=== PATIENT | male | born 1955 | race African-American/Black ===

== ENCOUNTER 2021-08-03 19:55 | Emergency (ER) | payer MEDICARE ==
[~2021-08-03] VITALS: Ht 167.6 cm; Wt 65.8 kg
--- NOTE | 2021-08-03 20:05 | NUR ---
PT [id number] FROM [facility] C/O AMS X 1 HOUR TACHY HEART RATE. A/OX3; LETHARGIC. PT TOLERATING R/A WELL AT 95%. CONNECTED PT TO POX AND MONITOR.
[2021-08-03] MEDS ORDERED: DEXTROSE 50%-WATER 50 ML DISP.SYRIN ONE (20:25)
--- NOTE | 2021-08-03 20:30 | NUR ---
BS 54; NOTIFIED LAW MD. VERBAL ORDER FOR DEXTROSE 50% AND ADMINISTERED LAC #18G S/L.
--- NOTE | 2021-08-03 20:33 | NUR ---
MAINFRAME SOFTWARE DEVELOPER AT PT'S BEDSIDE
--- NOTE | 2021-08-03 20:34 | NUR ---
PT TAKEN TO CT VIA LA
--- NOTE | 2021-08-03 20:42 | NUR ---
PT RETURNED TO ER BED 6 VIA LA
[2021-08-03 20:53] LABS: BASOPHILS % (AUTO) 0.2 % (0.0-2.0); EOSINOPHILS % (AUTO) 0.2 % (0.0-6.0); HEMATOCRIT 29 % (39-51); HEMOGLOBIN 9.8 g/dL (13.5-17.5); LYMPHOCYTES # (AUTO) 0.7 K/uL (0.8-4.8); LYMPHOCYTES % (AUTO) 14.3 % (20.0-44.0); MEAN CORPUSCULAR HGB CONC 34 g/dl (31.0-36.0); MEAN CORPUSCULAR VOLUME 97 fL (80-96); MONOCYTES # (AUTO) 1.2 K/uL (0.1-1.30); MONOCYTES % (AUTO) 24.6 % (2.0-12.0); NEUTROPHILS # (AUTO) 2.9 K/uL (1.8-8.9); NEUTROPHILS % (AUTO) 60.7 % (43.0-81.0); PLATELET COUNT (AUTO) 203 K/uL (150-450); RED BLOOD CELL COUNT(AUTO) 2.99 MIL/uL (4.5-6.0); WHITE BLOOD COUNT (AUTO) 4.8 K/uL (4.3-11.0)
--- NOTE | 2021-08-03 20:54 | NUR ---
COLLECTED COVID ANTIGEN SWAB AND SENT TO LAB
--- NOTE | 2021-08-03 20:56 | NUR ---
PT NOT ABLE TO PROVIDE URINE SAMPLE AT THIS TIME; WILL F/U TRY AGAIN LATER
[2021-08-03 21:02] LABS: CALCIUM, SERUM 9.7 mg/dL (8.5-10.1); CARBON DIOXIDE 28 mmol/L (21-32); CHLORIDE 102 mmol/L (98-107); CREATININE 1.4 mg/dL (0.6-1.3); GLUCOSE 57 mg/dL (74-106); POTASSIUM 3.5 mmol/L (3.5-5.1); SERUM AMMONIA 14 umol/L (11-32); SODIUM SERUM 139 mmol/L (136-145); UREA NITROGEN, BLOOD 29 mg/dL (7-18)
[2021-08-03 21:07] LABS: ALANINE AMINOTRANSFERASE 44 U/L (12-78); ALBUMIN 2.9 g/dL (3.4-5.0); ALKALINE PHOSPHATASE 86 U/L (46-116); ASPARTATE AMINOTRANSFERASE 63 U/L (15-37); BILIRUBIN,DIRECT 0.1 mg/dL (0.0-0.2); BILIRUBIN,TOTAL 0.1 mg/dL (0.2-1.0); TOTAL PROTEIN, SERUM 7.2 g/dL (6.4-8.2)
--- NOTE | 2021-08-03 21:08 | NUR ---
BS 163; PT DENIES N/V/D
[2021-08-03 21:09] LABS: ALCOHOL, BLOOD < 3 mg/dL (0-0)
[2021-08-03 21:14] LABS: THYROID STIMULATING HORMONE 1.973 uIU/mL (0.358-3.74)
[2021-08-03 21:34] LABS: BASOPHILS % (MANUAL) 1 % (0.0-2.0); LYMPHOCYTES % (MANUAL) 7 % (16-48); MONOCYTES % (MANUAL) 28 % (0-11.0); NEUTROPHILS % (MANUAL) 64 (42-76)
--- NOTE | 2021-08-03 21:41 | NUR ---
UPDATED DAUGHTER [phone] PT COMING FROM [facility] [address] - NURSE GARAY
--- NOTE | 2021-08-03 21:49 | NUR ---
GAVE REPORT TO ZULEIKA KUMARI FOR YASMEEN. ZULEIKA WILL CALL BACK TO CONFIRM PT BED AVAILABLE. CONTACT DROPLET ISOLATION PRECAUTIONS IN PLACE
--- NOTE | 2021-08-03 22:05 | NUR ---
VENU TO PT TO D/C [facility] BED 307 B
--- NOTE | 2021-08-03 22:07 | NUR ---
[facility] CALLED FOR TRANSPORT. ETA 2-2.5 HRS
--- NOTE | 2021-08-03 22:26 | NUR ---
UPDATED TANISHA NURSE FROM [facility] FOR [facility]BUL[facility] ETA. UPDATED FELISA WYLIE [phone] ON PT'S STATUS.
--- NOTE | 2021-08-03 23:56 | NUR ---
BS 196; PT DENIES N/V/D, OR DIZZINESS. PT IN NO RESP DISTRESS. TOLERATING R/A WELL AT 96%.
--- NOTE | 2021-08-04 00:12 | NUR ---
PT SIGNED DC PAPER WORK: EDUCATION GIVEN & VERBALIZES UNDERSTANDING ON DC
[2021-08-04] MEDS ORDERED: DEXTROSE 50%-WATER 50 ML DISP.SYRIN IVP ONE (00:30)
--- NOTE | 2021-08-04 02:42 | NUR ---
REPORT GIVEN TO EMS AT BEDSIDE
[2021-08-04 03:04] VITALS: BP 142/85
== END 2021-08-04 02:42 ==
LOC: ER 19:59
DX: E16.2 Hypoglycemia, unspecified (principal); U07.1 COVID-19; I10 Essential (primary) hypertension; M95.2 Other acquired deformity of head; S02.32XS Fracture of orbital floor, left side, sequela; X58.XXXS Exposure to other specified factors, sequela; R94.31 Abnormal electrocardiogram [ECG] [EKG]
CPT/HCPCS: 36415; 70450-TC; 71045-TC; 80048-TC; 80076-TC; 82140-TC; 82962-TC; 84443-TC; 84484-TC; 85025-TC; 85730-TC; 87081-TC; C9803; G0480

== ENCOUNTER 2022-02-04 21:50 | Inpatient (IN) | payer MEDICARE, OTHER ==
[~2022-02-04] VITALS: Ht 170.2 cm; Wt 54.0 kg
--- NOTE | 2022-02-04 21:54 | NUR ---
BIBRA90 FROM [facility] WITH NO MEDICAL COMPLAINTS PER DAUGHTER "HES NOT ACTING NORMAL" & "SLURRED SPEECH" PER STAFF "HES ACTING NORMAL" BS 109. PT A/OX2/3. TOLERATING R/A WITH RESPIRATIONS EVEN AND NONLABORED. CONNECTED PT TO POX AND MONITOR.
--- NOTE | 2022-02-04 22:18 | NUR ---
PLATFORM MATERIAL HANDLER MANAGER AT PT'S BEDSIDE
--- NOTE | 2022-02-04 22:50 | NUR ---
URINE COLLECTED AND SENT TO LAB
[2022-02-04 23:09] LABS: BASOPHILS % (AUTO) 0.4 % (0.0-2.0); EOSINOPHILS % (AUTO) 3.7 % (0.0-6.0); HEMATOCRIT 32 % (39-51); HEMOGLOBIN 10.5 g/dL (13.5-17.5); LYMPHOCYTES # (AUTO) 3.3 K/uL (0.8-4.8); LYMPHOCYTES % (AUTO) 37.7 % (20.0-44.0); MEAN CORPUSCULAR HGB CONC 33 g/dl (31.0-36.0); MEAN CORPUSCULAR VOLUME 90 fL (80-96); MONOCYTES # (AUTO) 0.6 K/uL (0.1-1.30); MONOCYTES % (AUTO) 7.3 % (2.0-12.0); NEUTROPHILS # (AUTO) 4.4 K/uL (1.8-8.9); NEUTROPHILS % (AUTO) 50.9 % (43.0-81.0); PLATELET COUNT (AUTO) 251 K/uL (150-450); RED BLOOD CELL COUNT(AUTO) 3.53 MIL/uL (4.5-6.0); WHITE BLOOD COUNT (AUTO) 8.7 K/uL (4.3-11.0)
[2022-02-04 23:13] LABS: CALCIUM, SERUM 8.8 mg/dL (8.5-10.1); CARBON DIOXIDE 28 mmol/L (21-32); CHLORIDE 104 mmol/L (98-107); CREATININE 0.9 mg/dL (0.6-1.3); GLUCOSE 99 mg/dL (74-106); POTASSIUM 4.5 mmol/L (3.5-5.1); SODIUM SERUM 138 mmol/L (136-145); UREA NITROGEN, BLOOD 21 mg/dL (7-18)
[2022-02-04 23:18] LABS: ALANINE AMINOTRANSFERASE 24 U/L (12-78); ALCOHOL, BLOOD < 3 mg/dL (0-0); ALKALINE PHOSPHATASE 111 U/L (46-116); ASPARTATE AMINOTRANSFERASE 14 U/L (15-37); BILIRUBIN,DIRECT 0.1 mg/dL (0.0-0.2); BILIRUBIN,TOTAL 0.1 mg/dL (0.2-1.0); TOTAL PROTEIN, SERUM 7.9 g/dL (6.4-8.2)
--- NOTE | 2022-02-04 23:20 | NUR ---
PT TAKEN TO CT VIA LA
--- NOTE | 2022-02-04 23:30 | NUR ---
PT RETURNED TO ER BED 4
[2022-02-04 23:31] LABS: SERUM AMMONIA 22 umol/L (11-32)
[2022-02-04 23:43] LABS: BILIRUBIN,URINE NEGATIVE (NEGATIVE); COLOR,URINE YELLOW (YELLOW); LEUKOCYTE ESTERASE ,URINE MODERATE (NEGATIVE); NITRITE, URINE POSITIVE (NEGATIVE); PH,URINE 5.5 (5.0-8.0); PROTEIN,URINE NEGATIVE (NEGATIVE); UGLUCOSE NEGATIVE (NEGATIVE); UROBILINOGEN,URINE 0.2 EU/dL (0.2)
[2022-02-04 23:50] LABS: BACTERIA,URINE Moderate /HPF (None Seen); RBC,URINE 0-2 /HPF (0-2); SQUAMOUS EPITHELIAL CELL,UR Few /HPF (None Seen)
[2022-02-05] MEDS ORDERED: CEFTRIAXONE 1GM BAG (ER ONLY) 50 ML IV ONE (00:46)
[2022-02-05] MEDS ORDERED: AZITHROMYCIN 500 MG VIAL ONE (00:47)
--- NOTE | 2022-02-05 00:57 | NUR ---
EPIC PAGED PER DR LING
[2022-02-05] MEDS ORDERED: AZITHROMYCIN 500 MG in IV D5W 250 ML IV ONE (01:00)
[2022-02-05] MEDS ORDERED: CEFTRIAXONE 1GM BAG (ER ONLY) 1 GM/50 ML PIGGYBACK IV ONE (01:00)
--- NOTE | 2022-02-05 01:37 | NUR ---
HACK SAW OPERATOR AT PT'S BEDSIDE
[2022-02-05] MEDS ORDERED: FAMO20TA8 PO (02:10)
[2022-02-05] MEDS ORDERED: ASPI-1169 PO (02:10)
[2022-02-05] MEDS ORDERED: METF-440 PO (02:10)
[2022-02-05] MEDS ORDERED: ATOR80TA PO (02:10)
[2022-02-05] MEDS ORDERED: INSU100V7 SQ (02:10)
[2022-02-05] MEDS ORDERED: VALP250S4 PO (02:10)
[2022-02-05] MEDS ORDERED: INSU100V42 SQ (02:10)
[2022-02-05] MEDS ORDERED: VITA1TAB20 PO (02:10)
[2022-02-05] MEDS ORDERED: LINA5TAB PO (02:10)
[2022-02-05] MEDS ORDERED: IPRA0.2S49 NEB (02:10)
[2022-02-05] MEDS ORDERED: QUET100T PO (02:10)
[2022-02-05] MEDS ORDERED: NITR0.4T48 SL (02:10)
--- NOTE | 2022-02-05 02:52 | NUR ---
LARGE INCONTINENT URINE NOTED; ADLS DONE. KEPT PT CLEAN AND DRY. SKIN INTACT.
--- NOTE | 2022-02-05 06:52 | NUR ---
FELISA ([facility]) [phone]
[2022-02-05] MEDS ORDERED: ACET-868 PO (07:20)
[2022-02-05] MEDS ORDERED: CHOL100043 PO (07:20)
[2022-02-05] MEDS ORDERED: VALP250C3 PO (07:20)
[2022-02-05] MEDS ORDERED: IPRA3AMP23 IH (07:20)
[2022-02-05] MEDS ORDERED: SENN-261 PO (07:20)
[2022-02-05] MEDS ORDERED: MAGN400O6 PO (07:20)
--- NOTE | 2022-02-05 08:00 | NUR ---
BREAKFAST TRAY PROVIDED, TOLERATED WELL
[2022-02-05] MEDS ORDERED: ACETAMINOPHEN 325 MG TABLET PO PRN ×2 (11:00)
[2022-02-05] MEDS ORDERED: MAGNESIUM HYDROXIDE 30 ML UDC PO PRN ×2 (11:00)
[2022-02-05] MEDS ORDERED: Z GUARD REMEDY 4 OZ OINT TP PRN (11:00)
[2022-02-05] MEDS ORDERED: MAG HYDROX/AL HYDROX/SIMETH 30 ML UDC PO PRN (11:00)
[2022-02-05] MEDS ORDERED: IPRATROPIUM NEB FS 0.5 MG/2.5 ML AMPUL.NEB NEB PRN (11:00)
[2022-02-05] MEDS ORDERED: NITROGLYCERIN 0.4 MG/TAB BOTTLE SL PRN (11:00)
[2022-02-05] MEDS ORDERED: ONDANSETRON HCL/PF 4 MG/2 ML VIAL IVP PRN (11:00)
[2022-02-05] MEDS ORDERED: SENNOSIDES 8.6 MG TABLET PO PRN (11:00)
[2022-02-05] MEDS ORDERED: Medication Not On Formulary EA (Ipratropium/Albuterol Sulfate (Duoneb 2.5-0.5 Mg/3 Ml So IH PRN (11:00)
[2022-02-05] MEDS ORDERED: ALBUTEROL FS 2.5 MG/0.5 ML VIAL.NEB NEB PRN (11:00)
--- NOTE | 2022-02-05 11:34 | NUR ---
REPORT GIVEN TO MYRANDA CASTRO FOR YASMEEN
--- NOTE | 2022-02-05 11:45 | NUR ---
TRANSFERRED TO BED 324 IN STABLE CONDITION
[2022-02-05 12:15] VITALS: BP 122/70
--- NOTE | 2022-02-05 12:15 | NUR ---
MS CHEMICAL TEST ENGINEER NOTES RECEIVED PATIENT FRO ER ENDORSED BY MATTHEW FONTAINE VIA LA. PATIENT IS AWAKE, CONFUSED AND A/O X2. ON ROOM AIR TOLERATING WELL. NO SOB NOTED. NOT IN DISTRESS. WITH NO COMPLAINTS OF PAIN AT THIS TIME. WITH IV ACCESS AT THE RIGHT AC G20 SALINE LOCKED, PATENT AND INTACT. WITH SITTER AT BEDSIDE. SKIN ASSESSMENT DONE AND SKIN IS INTACT. SAFETY MEASURES IN PLACED. CALL LIGHT WITHIN REACH. BED ON LOWEST LOCKED POSITION, SIDE RAILS UP X2. WILL CONTINUE TO MONITOR.
[2022-02-05] MEDS: BLOOD SUGAR DIAGNOSTIC 1 EACH STRIP VI SCH ×3 (12:57→22:42)
[2022-02-05] MEDS: IV NS 0.9% 1,000 ML IV PRN ×3 (14:27→16:29)
[2022-02-05] MEDS: INSULIN REGULAR, HUMAN 100 UNIT/ML 3 ML VIAL SQ PRN ×2 (14:32→17:22)
[2022-02-05 16:00] VITALS: BP 125/75
[2022-02-05] MEDS: QUETIAPINE FUMARATE 100 MG TABLET PO SCH (17:03)
[2022-02-05] MEDS: METFORMIN 500 MG TABLET PO SCH (17:03)
[2022-02-05] MEDS: VALPROIC ACID 250 MG/5 ML UDC PO SCH (17:04)
--- NOTE | 2022-02-05 19:02 | NUR ---
MS RN CLOSING NOTES PATIENT RESTING ON BED, CONFUSED AND A/O X2. ON ROOM AIR TOLERATING WELL. NO SOB NOTED. NOT IN DISTRESS. WITH NO COMPLAINTS OF PAIN AT THIS TIME. WITH IV ACCESS AT THE RIGHT AC G20 SALINE LOCKED, PATENT AND INTACT. WITH SITTER AT BEDSIDE. SKIN ASSESSMENT DONE AND SKIN IS INTACT. SAFETY MEASURES IN PLACED. CALL LIGHT WITHIN REACH. BED ON LOWEST LOCKED POSITION, SIDE RAILS UP X2. WILL ENDORSE TO NEXT SHIFT FOR YASMEEN.
--- NOTE | 2022-02-05 19:35 | NUR ---
MS RN OPENING NOTE RECEIVED PATIENT IN BED; AWAKE, ALERT AND ORIENTED X2. BREATHING IS EVEN AND UNLABORED. ON ROOM AIR, TOLERATING WELL. NOT IN ANY FORM OF RESPIRATORY DISTRESS. DENIES ANY PAIN OR DISCOMFORT AT THIS TIME. WITH SITTER AT BEDSIDE. WITH IV ACCESS @ RIGHT ANTECUBITAL G#20; PATENT, INTACT AND SALINE LOCKED. SAFETY MEASURES IMPLEMENTED: CALL LIGHT AND TABLE WITHIN REACH, SIDE RAILS UP X2, BED IN LOWEST LOCKED POSITION. WILL CONTINUE TO MONITOR
[2022-02-05 20:00] VITALS: BP 102/60
[2022-02-05] MEDS: *INSULIN REGULAR(HUMULIN R)HUM 100 UNIT/ML VIAL SQ PRN (22:45)
[2022-02-05] MEDS: INSULIN GLARGINE, 100 UNIT/ML CARTRIDGE SQ SCH (22:46)
--- NOTE | 2022-02-06 05:41 | NUR ---
RN NOTE BS CHECKED WITH RESULT OF 51 MG/DL
[2022-02-06] MEDS: DEXTROSE 50%-WATER 50 ML DISP.SYRIN IV PRN (05:58)
--- NOTE | 2022-02-06 05:58 | NUR ---
RN NOTE PRN MED DEXTROSE 50%-WATER 50 ML GIVEN IVP ORDERED; WILL REASSESS BS AFTER 30 MINUTES. PATIENT IS AWAKE AND VERBALLY RESPONSIVE. WITH SITTER AT BEDSIDE.
--- NOTE | 2022-02-06 06:40 | NUR ---
MS RN CLOSING NOTE PATIENT RESTING IN BED; AWAKE, ALERT AND ORIENTED X2. BREATHING IS EVEN AND UNLABORED. ON ROOM AIR, TOLERATING WELL. NOT IN ANY FORM OF RESPIRATORY DISTRESS. DENIES ANY PAIN OR DISCOMFORT AT THIS TIME. WITH SITTER AT BEDSIDE. WITH IV ACCESS @ RIGHT ANTECUBITAL G#20; PATENT, INTACT AND SALINE LOCKED. SAFETY MEASURES IN PLACE: CALL LIGHT AND TABLE WITHIN REACH, SIDE RAILS UP X2, BED IN LOWEST LOCKED POSITION. ENDORSED TO MORNING SHIFT FOR YASMEEN.
[2022-02-06 06:50] LABS: CALCIUM, SERUM 8.6 mg/dL (8.5-10.1); CREATININE 0.8 mg/dL (0.6-1.3); MAGNESIUM 1.8 mg/dL (1.8-2.4); PHOSPHORUS 3.7 mg/dL (2.5-4.9); POTASSIUM 4.4 mmol/L (3.5-5.1)
[2022-02-06 07:40] LABS: BASOPHILS % (AUTO) 0.3 % (0.0-2.0); EOSINOPHILS % (AUTO) 4.2 % (0.0-6.0); HEMATOCRIT 31 % (39-51); HEMOGLOBIN 10.1 g/dL (13.5-17.5); LYMPHOCYTES # (AUTO) 2.6 K/uL (0.8-4.8); LYMPHOCYTES % (AUTO) 40.2 % (20.0-44.0); MEAN CORPUSCULAR HGB CONC 33 g/dl (31.0-36.0); MEAN CORPUSCULAR VOLUME 91 fL (80-96); MONOCYTES # (AUTO) 0.5 K/uL (0.1-1.30); MONOCYTES % (AUTO) 7.5 % (2.0-12.0); NEUTROPHILS # (AUTO) 3.1 K/uL (1.8-8.9); NEUTROPHILS % (AUTO) 47.8 % (43.0-81.0); PLATELET COUNT (AUTO) 115 K/uL (150-450); RED BLOOD CELL COUNT(AUTO) 3.37 MIL/uL (4.5-6.0); WHITE BLOOD COUNT (AUTO) 6.5 K/uL (4.3-11.0)
--- NOTE | 2022-02-06 08:00 | NUR ---
RN OPENING NOTE PATIENT AWAKE IN BED RESTING. A/O X2. NO S/S OF PAIN NOTED AT THIS TIME. ON ROOM AIR, NO DISTRESS OR SHORTNESS OF BREATH NOTED. IV ACCESS RAC #20G, INTACT, PATENT AND FLUSHING WELL. FALL AND SAFETY MEASURES IN PLACE, BED ALARM ON, BED IN LOW AND LOCK POSITION, CALL LIGHT AND TABLE WITHIN EASY REACH, SIDE RAILS UP X2. WILL CONTINUE TO MONITOR.
[2022-02-06] MEDS: BLOOD SUGAR DIAGNOSTIC 1 EACH STRIP VI SCH ×4 (08:38→22:04)
[2022-02-06] MEDS: INSULIN GLARGINE, 100 UNIT/ML CARTRIDGE SQ SCH (09:00)
[2022-02-06] MEDS: VALPROIC ACID 250 MG/5 ML UDC PO SCH ×2 (09:31→17:06)
[2022-02-06] MEDS: ASPIRIN 81 MG TAB.CHEW PO SCH (09:31)
[2022-02-06] MEDS: FAMOTIDINE (20 MG) 20 MG TABLET PO SCH (09:31)
[2022-02-06] MEDS: ATORVASTATIN 40 MG TABLET PO SCH (09:32)
[2022-02-06] MEDS: METFORMIN 500 MG TABLET PO SCH ×2 (09:32→17:06)
[2022-02-06] MEDS: CHOLECALCIFEROL 1,000 UNIT TABLET (VIT D3) PO SCH (09:33)
[2022-02-06] MEDS: QUETIAPINE FUMARATE 100 MG TABLET PO SCH ×2 (09:33→17:06)
--- NOTE | 2022-02-06 09:53 | NUR ---
RN NOTE PATIENT GLARGINE WAS NOT ADMINISTERED DUE TO PATIENT GLUCOSE LEVEL. GLUCOSE WAS 65, JUICE WAS GIVEN TO PATIENT, WILL CONTINUE TO MONITOR.
[2022-02-06] MEDS: CEFTRIAXONE 1 G in IV D5W 50 ML IV SCH (11:02)
[2022-02-06] MEDS: AZITHROMYCIN 500 MG in IV D5W 250 ML IV SCH (12:04)
[2022-02-06] MEDS ORDERED: ONDANSETRON HCL/PF 4 MG/2 ML VIAL IVP PRN (13:00)
[2022-02-06] MEDS ORDERED: ACETAMINOPHEN 325 MG TABLET PO PRN (13:00)
[2022-02-06] MEDS ORDERED: Z GUARD REMEDY 4 OZ OINT TP PRN (13:00)
[2022-02-06] MEDS ORDERED: IV NS 0.9% 1,000 ML IV PRN (13:00)
[2022-02-06] MEDS: PANTOPRAZOLE 40 MG TABLET.DR PO SCH (13:09)
[2022-02-06] MEDS: ENOXAPARIN SODIUM 40 MG/0.4 ML DISP.SYRIN SQ SCH (13:11)
[2022-02-06] MEDS: IV NS 0.9% 1,000 ML IV PRN (15:09)
[2022-02-06] MEDS: INSULIN REGULAR, HUMAN 100 UNIT/ML 3 ML VIAL SQ PRN (17:18)
--- NOTE | 2022-02-06 19:25 | NUR ---
MS RN OPENING NOTE RECEIVED PATIENT IN BED; AWAKE, ALERT AND ORIENTED X2. WITH EVEN AND UNLABORED BREATHING. ON ROOM AIR, TOLERATING WELL. NOT IN ANY FORM OF RESPIRATORY DISTRESS. DENIES ANY PAIN OR DISCOMFORT AT THIS TIME. WITH IV ACCESS @ RIGHT ANTECUBITAL G#20; PATENT, INTACT AND SALINE LOCKED. NEEDS ANTICIPATED AND ATTENDED. SAFETY MEASURES IMPLEMENTED: CALL LIGHT AND TABLE WITHIN EASY REACH, SIDE RAILS UP X2, BED IN LOWEST LOCKED POSITION. WILL CONTINUE TO MONITOR
--- NOTE | 2022-02-06 19:28 | NUR ---
RN CLOSING NOTE PATIENT AWAKE IN BED RESTING. A/O X2. NO S/S OF PAIN NOTED AT THIS TIME. ON ROOM AIR, NO DISTRESS OR SHORTNESS OF BREATH NOTED. IV ACCESS RAC #20G, INTACT, PATENT AND FLUSHING WELL. ALL SCHEDULE MEDICATIONS GIVEN. FALL AND SAFETY MEASURES IN PLACE, BED ALARM ON, BED IN LOW AND LOCK POSITION, CALL LIGHT AND TABLE WITHIN EASY REACH, SIDE RAILS UP X2. WILL ENDORSE TO TECHNICAL SALES CONSULTANT.
[2022-02-06 20:00] VITALS: BP 104/68
[2022-02-06 20:06] VITALS: BP 104/68
--- NOTE | 2022-02-06 22:04 | NUR ---
RN NOTE BS CHECKED: 64 MG/DL. APPLE JUICE GIVEN AND MILK PER PT'S REQUEST. PATIENT IS RESTING WATCHING FROM TV. WILL CONTINUE TO MONITOR
[2022-02-07] MEDS: BLOOD SUGAR DIAGNOSTIC 1 EACH STRIP VI SCH ×4 (06:19→22:13)
[2022-02-07] MEDS: DEXTROSE 50%-WATER 50 ML DISP.SYRIN IV PRN (06:19)
--- NOTE | 2022-02-07 06:19 | NUR ---
RN NOTE BS CHECKED WITH RESULT OF 48 MG/DL.
--- NOTE | 2022-02-07 06:25 | NUR ---
RN NOTE PRN MED DEXTROSE 50%-WATER 50 ML GIVEN IVP ORDERED; WILL REASSESS BS AFTER 30 MINUTES. PATIENT IS AWAKE AND VERBALLY RESPONSIVE.
[2022-02-07 06:41] LABS: BASOPHILS % (AUTO) 0.3 % (0.0-2.0); EOSINOPHILS % (AUTO) 2.9 % (0.0-6.0); HEMATOCRIT 32 % (39-51); HEMOGLOBIN 10.4 g/dL (13.5-17.5); LYMPHOCYTES # (AUTO) 2.3 K/uL (0.8-4.8); LYMPHOCYTES % (AUTO) 32.9 % (20.0-44.0); MEAN CORPUSCULAR HGB CONC 33 g/dl (31.0-36.0); MEAN CORPUSCULAR VOLUME 91 fL (80-96); MONOCYTES # (AUTO) 0.5 K/uL (0.1-1.30); MONOCYTES % (AUTO) 7.4 % (2.0-12.0); NEUTROPHILS # (AUTO) 3.9 K/uL (1.8-8.9); NEUTROPHILS % (AUTO) 56.5 % (43.0-81.0); PLATELET COUNT (AUTO) 298 K/uL (150-450)
--- NOTE | 2022-02-07 07:00 | NUR ---
RN NOTE BS CHECKED - 149 MG/DL; NO INSULIN COVERAGE GIVEN.
--- NOTE | 2022-02-07 07:05 | NUR ---
MS RN CLOSING NOTE PATIENT RESTING COMFORTABLY IN BED; AWAKE, A/O X2. BREATHING EVEN AND NONLABORED. STABLE IN ROOM AIR. IN NO ACUTE DISTRESS NOTED. DENIES ANY PAIN OR DISCOMFORT AT THIS TIME. WITH IV ACCESS @ LEFT ANTECUBITAL G#20; PATENT, INTACT AND SALINE LOCKED. SAFETY MEASURES IN PLACE: CALL LIGHT AND TABLE WITHIN EASY REACH, SIDE RAILS UP X2, BED IN LOWEST LOCKED POSITION. ENDORSED TO MORNING SHIFT FOR YASMEEN.
[2022-02-07 07:08] LABS: CREATININE 0.8 mg/dL (0.6-1.3); MAGNESIUM 1.9 mg/dL (1.8-2.4); PHOSPHORUS 3.9 mg/dL (2.5-4.9); POTASSIUM 4.2 mmol/L (3.5-5.1)
--- NOTE | 2022-02-07 07:10 | NUR ---
MS OPENING NOTES RECEIVED PATIENT AWAKE IN BED RESTING, AWAKE AND RESPONSIVE TO NAME. A/O x2, INCONTINENT. ON ROOM AIR, NO S/S OF RESPIRATOR DISTRESS OR SOB NOTED. NO PAIN OR DISCOMFORT NOTED. IV ACCESS L AC #20 G WITH NS RUNNING @75 ML/HR. INTACT AND PATENT, NO S/S OF INFILTRATION. SKIN IS INTACT. PATIENT IS ON BED REST. WILL CONTINUE TO MONITOR AND ASSESS. SAFETY MEASURES IN PLACE: BED IN LOWEST POSITION LOCKED POSITION, SIDE RAILS UP x2, CALL LIGHT WITHIN REACH.
[2022-02-07 07:42] LABS: THYROID STIMULATING HORMONE 1.879 uIU/mL (0.358-3.74)
[2022-02-07 08:00] VITALS: BP 142/89
[2022-02-07] MEDS: PANTOPRAZOLE 40 MG TABLET.DR PO SCH (08:03)
[2022-02-07] MEDS: CHOLECALCIFEROL 1,000 UNIT TABLET (VIT D3) PO SCH (08:45)
[2022-02-07] MEDS: ATORVASTATIN 40 MG TABLET PO SCH (08:45)
[2022-02-07] MEDS: METFORMIN 500 MG TABLET PO SCH ×2 (08:45→16:14)
[2022-02-07] MEDS: VALPROIC ACID 250 MG/5 ML UDC PO SCH ×2 (08:45→16:14)
[2022-02-07] MEDS: FAMOTIDINE (20 MG) 20 MG TABLET PO SCH (08:45)
[2022-02-07] MEDS: QUETIAPINE FUMARATE 100 MG TABLET PO SCH ×2 (08:45→16:14)
[2022-02-07] MEDS: ASPIRIN 81 MG TAB.CHEW PO SCH (08:45)
[2022-02-07] MEDS: ENOXAPARIN SODIUM 40 MG/0.4 ML DISP.SYRIN SQ SCH (08:46)
[2022-02-07] MEDS: INSULIN GLARGINE, 100 UNIT/ML CARTRIDGE SQ SCH (08:47)
--- NOTE | 2022-02-07 08:47 | NUR ---
RN NOTES PATIENT REFUSED INSULIN, BLOOD SUGAR 110 STATES IT IS GOOD AND HE DOES NOT NEED IT. WILL CONTINUE TO MONITOR.
[2022-02-07] MEDS: CEFTRIAXONE 1 G in IV D5W 50 ML IV SCH (10:22)
[2022-02-07] MEDS: IV NS 0.9% 1,000 ML IV PRN (10:22)
[2022-02-07] MEDS: AZITHROMYCIN 500 MG in IV D5W 250 ML IV SCH (11:31)
[2022-02-07 16:19] VITALS: BP 126/72
--- NOTE | 2022-02-07 18:31 | NUR ---
MS RN CLOSING NOTES PATIENT AWAKE IN BED AWAKE AND RESPONSIVE TO NAME. A/O x2-3, INCONTINENT. DAUGHTER AT BEDSIDE AT THIS TIME. STABLE ROOM AIR, NO S/S OF RESPIRATOR DISTRESS OR SOB NOTED. NO PAIN OR DISCOMFORT NOTED. IV ACCESS L AC #22 G WITH NS RUNNING @75 ML/HR. INTACT AND PATENT, NO S/S OF INFILTRATION. SKIN IS INTACT. PATIENT IS ON BED REST AND AMBULATORY WITH ASSISTANCE. WILL CONTINUE TO MONITOR AND ASSESS. ALL PRESCRIBED MEDICATION ADMINISTERED. SAFETY MEASURES MAINTAINED: BED IN LOWEST POSITION LOCKED POSITION, SIDE RAILS UP x2, CALL LIGHT WITHIN REACH. WILL ENDORSE TO NEXT SHIFT ANY YASMEEN.
--- NOTE | 2022-02-07 19:10 | NUR ---
RN NOTES: RECEIVED LYING COMFORTABLY IN BED, A/O X 1-2 , ORIENTED TO UNIT AND STAFF, ON MED SURG, INCONTINENT B/B, LAC G#20 NS AT 75 ML/HR ONGOING, NON LABORED BREATHING, NO PAIN OR DISCOMFORT, KEPT ON CLOSE WATCH. -FALL,SAFETY AND ASPIRATION PRECAUTION OBSERVED.
[2022-02-07 20:00] VITALS: BP 117/50
[2022-02-07] MEDS: *INSULIN REGULAR(HUMULIN R)HUM 100 UNIT/ML VIAL SQ PRN (22:15)
--- NOTE | 2022-02-07 22:42 | NUR ---
RN NOTES: AT 2202 BLOOD SUGAR CHECKED-212, INSULIN GIVEN PER SCALE GIVEN JUICE, WILL CONTINUE TO MONITOR FOR SIGN OF HYPER/HYPOGLYCEMIA.
[2022-02-08] MEDS: IV NS 0.9% 1,000 ML IV PRN (06:22)
--- NOTE | 2022-02-08 06:22 | NUR ---
RN NOTES: MORNING CARE DONE, SKIN TREATMENT RENDERED,IVF CONSUMED, NEW BAG ON NS AT 75 ML/HR STARTED VIA INFUSION PUMP.
[2022-02-08] MEDS: BLOOD SUGAR DIAGNOSTIC 1 EACH STRIP VI SCH ×3 (06:48→16:47)
--- NOTE | 2022-02-08 07:07 | NUR ---
RN NOTES: ASLEEP IN THE NIGHT, MORNING CARE DONE, CLEAN AND CHANGE, BLOOD SUGAR 136, TO GIVE INSULIN PER SCALE, NO LABS IN THE MORNING, NO PAIN OR DISCOMFORT, ENDORSED FOR CONTINUITY OF CARE.
--- NOTE | 2022-02-08 07:20 | NUR ---
MS OPENING NOTE RECEIVED PATIENT AWAKE IN BED RESTING, PATIENT IS A/O x 1-2. PATIENT IS ON ROOM AIR, WITH EQUAL AND UNLABORED BREATHING, WITH NO SIGNS OF RESPIRATORY DISTRESS. ABLE TO MAKE NEEDS KNOWN. NO COMPLAIN OF PAIN OR DISCOMFORT AT THIS TIME. WITH IV ACCESS LEFT AC #22 G WITH IVF OF NS RUNNING @75 ML/HR. INFUSING WELL. SAFETY MEASURES IN PLACE: BED IN LOWEST POSITION LOCKED POSITION, SIDE RAILS UP x2, CALL LIGHT WITHIN REACH. WILL CONTINUE TO MONITOR PATIENT.
[2022-02-08] MEDS ORDERED: CEPH500C2 PO (08:53)
[2022-02-08] MEDS: ASPIRIN 81 MG TAB.CHEW PO SCH (09:17)
[2022-02-08] MEDS: METFORMIN 500 MG TABLET PO SCH ×2 (09:17→16:33)
[2022-02-08] MEDS: FAMOTIDINE (20 MG) 20 MG TABLET PO SCH (09:17)
[2022-02-08] MEDS: QUETIAPINE FUMARATE 100 MG TABLET PO SCH ×2 (09:17→16:33)
[2022-02-08] MEDS: ATORVASTATIN 40 MG TABLET PO SCH (09:18)
[2022-02-08] MEDS: ENOXAPARIN SODIUM 40 MG/0.4 ML DISP.SYRIN SQ SCH (09:19)
[2022-02-08] MEDS: INSULIN GLARGINE, 100 UNIT/ML CARTRIDGE SQ SCH (09:20)
[2022-02-08] MEDS: VALPROIC ACID 250 MG/5 ML UDC PO SCH ×2 (09:20→16:33)
[2022-02-08] MEDS: PANTOPRAZOLE 40 MG TABLET.DR PO SCH (09:35)
[2022-02-08] MEDS: CHOLECALCIFEROL 1,000 UNIT TABLET (VIT D3) PO SCH (09:37)
--- NOTE | 2022-02-08 10:00 | NUR ---
MS RN NOTE PATIENT SEEN BY DR. OLIVER. IN STABLE CONDITION.
[2022-02-08] MEDS ORDERED: AZITHROMYCIN 250 MG TABLET PO SCH (11:00)
--- NOTE | 2022-02-08 11:15 | NUR ---
MS RN NOTE PATIENT WITH ORDER FOR DISCHARGE. PATIENT IS FORGETFUL AND CONFUSED. HEALTH TEACHINGS DONE BUT WILL NEED REINFORCEMENTS AND ADDITIONAL INSTRUCTIONS.
[2022-02-08] MEDS: CEFTRIAXONE 1 G in IV D5W 50 ML IV SCH (11:28)
[2022-02-08] MEDS: *INSULIN REGULAR(HUMULIN R)HUM 100 UNIT/ML VIAL SQ PRN (12:02)
--- NOTE | 2022-02-08 17:15 | NUR ---
MS RN NOTE PATIENT DISCHARGED ORDERED. PATIENT ENDORSED TO NURSE CELINA BONILLA AT [facility]. PATIENT IV ACCESS REMOVED AND COVERED WITH DRY DRESSING. TOLERATED WELL. PATIENT IN STABLE CONDITION. PATIENT PICKED UP BY AMBULANCE ACCOMPANIED BY 2 EMT. ENDORSED PATIENT ACCORDINGLY.
== END 2022-02-08 17:10 | DRG 689 ==
LOC: ER 21:54 → TRANSITION 02-05 02:59 → TELE 02-05 11:35 → MED 02-05 12:35
PROVIDERS: ADMIT Internal Medicine; ATTEND Internal Medicine
DX: N39.0 Urinary tract infection, site not specified (principal); G93.41 Metabolic encephalopathy; J96.01 Acute respiratory failure with hypoxia; K21.9 Gastro-esophageal reflux disease without esophagitis; Z86.73 Personal history of transient ischemic attack (TIA), and cerebral infarction without residual deficits; E11.9 Type 2 diabetes mellitus without complications; B96.1 Klebsiella pneumoniae [K. pneumoniae] as the cause of diseases classified elsewhere; F20.9 Schizophrenia, unspecified; E78.5 Hyperlipidemia, unspecified; I10 Essential (primary) hypertension
CPT/HCPCS: 36415; 70450-TC; 71045-TC; 80048-TC; 80061-TC; 80076-TC; 81001; 82140-TC; 82962-TC; 83540-TC; 83735-TC; 84100-TC; 84443-TC; 84484-TC; 85025-TC; 87040-TC; 87086-TC; 87186-TC; C9803; G0378; G0480; J0456; J0696; J1650; J1815; J7030; J7060